=== PATIENT | female | born 1950 | race Caucasian/White ===

== ENCOUNTER → 2017-08-20 | Outpatient (CLI) | payer OTHER, MEDICARE | LOC: RAD 08-11 04:28 | DX: Z12.31 Encounter for screening mammogram for malignant neoplasm of breast (principal) ==

== ENCOUNTER → 2018-09-21 | Outpatient (CLI) | payer OTHER, MEDICARE | LOC: RAD 10:24 | DX: Z12.31 Encounter for screening mammogram for malignant neoplasm of breast (principal) ==

== ENCOUNTER → 2019-11-04 | Outpatient (CLI) | payer OTHER, MEDICARE | LOC: BC 13:54 | DX: Z12.31 Encounter for screening mammogram for malignant neoplasm of breast (principal) ==

== ENCOUNTER → 2020-11-23 | Outpatient (CLI) | payer OTHER | LOC: BC 09:17 → EDSTATUS 09:35 → BC 11:48 | DX: Z12.31 Encounter for screening mammogram for malignant neoplasm of breast (principal) ==